=== PATIENT | male | born 1975 | race American Indian/Alaskan Native ===

== ENCOUNTER 2017-09-22 14:31 | Emergency (ER) | payer SELFPAY ==
[2017-09-22 15:40] LABS: Basophils % (Auto) 0.2 % (0.0-1.8); Eosinophils # (Auto) 0.1 K/mm3 (0.0-0.4); Eosinophils % (Auto) 0.7 % (0.0-4.3); Hematocrit 39.4 % (35.5-45.6); Hemoglobin 12.4 gm/dl (11.8-15.2); Lymphocytes # (Auto) 1.7 K/mm3 (1.2-5.4); Mean Corpuscular HGB Conc 32 % (32-34); Mean Corpuscular Volume 73 fl (84-94); Monocytes # (Auto) 0.2 K/mm3 (0.0-0.8); Platelet Count 263 K/mm3 (140-440); Red Blood Count 5.41 M/mm3 (3.65-5.03); Red Cell Distribution Width 14.6 % (13.2-15.2)
[2017-09-22 15:41] LABS: Mean Corpuscular Hemoglobin 23 pg (28-32)
[2017-09-22 15:54] LABS: BUN/Creatinine Ratio 13; Blood Urea Nitrogen 12 mg/dL (9-20); Calcium 9.2 mg/dL (8.4-10.2); Hemolysis Index 6
[2017-09-22 16:04] LABS: Bilirubin,Urine NEG (Negative); Blood,Urine SM (Negative); Color,Urine Yellow (Yellow); Hyaline Casts,Urine 11 /LPF; Mucus,Urine 3+ /HPF
[2017-09-22 16:27] LABS: Amphetamine Screen,Urine PRESUMPTIVE NEGATIVE; Benzodiazepines Screen,Urine PRESUMPTIVE NEGATIVE; Cannabinoid Screen,Urine PRESUMPTIVE NEGATIVE; Cocaine Screen,Urine PRESUMPTIVE NEGATIVE; Methadone Screen,Urine PRESUMPTIVE NEGATIVE
[2017-09-22 16:31] LABS: Opiate Screen,Urine PRESUMPTIVE POSITIVE
--- NOTE | 2017-09-22 23:03 | Emergency Department Report ---
HPI - General Chief Complaint: Medical Clearance Time Seen by Provider: 09/22/17 22:13 - HPI HPI: 42-year-old male presents to the emergency department hoping for a medical clearance to go to [facility] for detox off of heroin. He last used today. He does not appear currently intoxicated. He says that he spoke with [facility] and was told that there is bed space available. He currently has no complaints that would be consistent with any type of withdrawal. He is a tobacco smoker. He denies any alcohol use today. He has a past medical history of hypertension and migraine headaches. ED Past Medical Hx - Past Medical History Hx Hypertension: Yes Hx Headaches / Migraines: Yes Additional medical history: heroin abuse - Surgical History Hx Appendectomy: Yes - Social History Smoking Status: Current Every Day Smoker Substance Use Type: None - Medications Home Medications: Home Medications Medication Instructions Recorded Confirmed Last Taken Type HYDROcodone/APAP 5-325 [[place] 1 each PO Q8HR PRN #15 tablet 10/26/14 Unknown Rx 5/325] Ibuprofen [Motrin] 800 mg PO Q8H PRN #21 tablet 10/26/14 Unknown Rx Losartan [Cozaar] 100 mg PO QDAY #30 tablet 10/26/14 Unknown Rx methOCARBAMOL [Robaxin] 500 mg PO BID #20 tab 10/26/14 Unknown Rx Ketorolac [Toradol] 10 mg PO Q6H PRN #20 tablet 08/04/15 Unknown Rx Losartan [Cozaar] 100 mg PO QDAY #30 tablet 08/04/15 Unknown Rx ED Review of Systems ROS: Stated complaint: MEDICAL CLEARANCE Other details as noted in HPI Comment: All other systems reviewed and negative Constitutional: denies: chills, fever Eyes: denies: eye pain, eye discharge, vision change ENT: denies: ear pain, throat pain Respiratory: denies: cough, shortness of breath, wheezing Cardiovascular: denies: chest pain, palpitations Gastrointestinal: denies: abdominal pain, nausea, diarrhea Genitourinary: denies: urgency, dysuria Musculoskeletal: denies: back pain, joint swelling, arthralgia Skin: denies: rash, lesions Neurological: denies: headache, weakness, paresthesias Physical Exam - Physical Exam Vital Signs: Vital Signs 09/22/17 14:56 Temperature 97.9 F Pulse Rate 99 H Respiratory 18 Rate Blood Pressure 136/96 O2 Sat by Pulse 100 Oximetry Physical Exam: GENERAL: The patient is well-developed well-nourished. HENT: Normocephalic. Atraumatic. Patient has moist mucous membranes. EYES: Extraocular motions are intact. Pupils equal reactive to light bilaterally. NECK: Supple. Trachea is midline. CHEST/LUNGS: Clear to auscultation. There is no respiratory distress noted. HEART/CARDIOVASCULAR: Regular. There is no tachycardia. There is no murmur. ABDOMEN: Abdomen is soft, nontender. Patient has normal bowel sounds. There is no abdominal distention. SKIN: Skin is warm and dry. NEURO: The patient is awake, alert, and oriented. The patient is cooperative. The patient has no focal neurologic deficits. The patient has normal speech. MUSCULOSKELETAL: There is no tenderness or deformity. There is no limitation range of motion. There is no evidence of acute injury. ED Course Vital Signs 09/22/17 14:56 Temperature 97.9 F Pulse Rate 99 H Respiratory 18 Rate Blood Pressure 136/96 O2 Sat by Pulse 100 Oximetry ED Medical Decision Making - Lab Data Result diagrams: 09/22/17 15:25 09/22/17 15:25 - Medical Decision Making Patient presented for medical clearance so he can go somewhere for detox from heroin. He is awake and alert and does not appear intoxicated or in any acute distress. Labs are mostly unremarkable. Urine drug screen positive for opiates but the patient readily admits to using heroin. Vital signs stable throughout his ED course. He does not appear to show any signs of any significant withdrawal symptoms. He appears medically cleared for detox. The patient says that he was accepted to [facility] and that his will drive him over there. Just in case there is a problem getting in there, he was given a referral to [facility]'s recovery center and can be a self referral starting at 8 AM in the morning. Critical Care Time: No Critical care attestation.: If time is entered above; I have spent that time in minutes in the direct care of this critically ill patient, excluding procedure time. ED Disposition Clinical Impression: Medical clearance for psychiatric admission, History of substance abuse Disposition: [id number] TO HOME OR SELFCARE Is pt being admited?: No Condition: Stable Additional Instructions: Please follow up at [facility] as previously planned. If this does not work for you, I have given you a referral for [facility] and they take self referrals from 8 AM until 1 PM, Saturday through Saturday. Return to the emergency Department with any acute distress. Referrals: Recovery Center, [facility] [Other] - [facility] (Self referral from 8A to 1P, Saturday - Saturday) Time of Disposition: 23:51
[2017-09-22 23:25] VITALS: BP 139/87
== END 2017-09-23 00:04 | disposition home or self-care (01) ==
LOC: ED 14:31
DX: Z02.89 Encounter for other administrative examinations (principal); I10 Essential (primary) hypertension; F11.10 Opioid abuse, uncomplicated; F17.200 Nicotine dependence, unspecified, uncomplicated; G43.909 Migraine, unspecified, not intractable, without status migrainosus
CPT/HCPCS: 36415; 80048; 80307; 81001; 85025; 99283; G0480; 80320; 99282